=== PATIENT | male | born 1970 | race Hispanic/Latino ===

== ENCOUNTER 2017-06-18 00:29 | Emergency (ER) | payer OTHER ==
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
== END 2017-06-18 02:11 | disposition home or self-care (01) ==
LOC: JD.ED 00:29
DX: T54.2X1A Toxic effect of corrosive acids and acid-like substances, accidental (unintentional), initial encounter (principal); Y99.0 Civilian activity done for income or pay
CPT/HCPCS: 99283; 99284